=== PATIENT | female | born 1980 | race Caucasian/White ===

== ENCOUNTER 2020-10-15 14:21 | Emergency (ER) | payer OTHER, SELFPAY ==
[2020-10-15 14:46] VITALS: BP 125/86; PULSE 76; RESP 18; TEMP 36.2; O2SAT 100; BMI 24.9
--- NOTE | 2020-10-15 16:16 | ED_ITS ---
HPI - Female Genitourinary General: Chief complaint: Urogenital-Female Stated complaint: abscess Time Seen by Provider: 10/15/20 14:58 Source: patient, RN notes reviewed and old records reviewed Mode of arrival: ambulatory Limitations: no limitations History of Present Illness: HPI Narrative: Patient is a 40-year-old female patient who has a history of recurrent Bartholin's gland abscess who presents to the emergency department with what she thinks is a Bartholin's abscess. Symptoms started 4 days ago and about 2 days ago it started draining. The swelling is located on her left labia. Yesterday the drainage stopped and got much bigger and now the pain is unbearable. She went to her primary care provider's office today who referred her to the surgeon's office today. The surgeon felt this was what needed to be handled by gynecology so he spoke with the cardiology consultant on-call, Dr. Rebolledo, and she was asked to come to the emergency department where he will see her. She denies any fever but has nausea that she thinks is secondary to the pain. MD elicited complaint: genital swelling Onset (ago): day(s) (4) Location of symptoms: external genitalia Severity: severe Quality of pain: sharp Consistency: constant Vaginal discharge: none Vaginal bleeding: none Relieving factors: none Associated symptoms: Reports nausea; Deny abdominal pain, short of breath, fevers/chills, headache(s), rash, seizures, syncope, vaginal bleeding, vaginal discharge or weakness Treatment prior to arrival: sitz bath Review of Systems General: Reports: 10 or more systems reviewed and unremarkable except in HPI and below Card: Denies: syncope GI: Reports: nausea; Denies: abdominal pain : Denies: vaginal discharge Neuro: Denies: headache(s) [facility] ED PFSH: Social History Smoking and tobacco status: never smoked Physical Exam Const: COMMON NORMALS: no acute distress, average body habitus, patient oriented x3, no limitations, healthy appearing, alert and well nourished HENMT: COMMON NORMALS: normocephalic, atraumatic and moist oral mucous membranes HEAD & SCALP: normocephalic and atraumatic Neck/C-Spine: COMMON NORMALS: no meningeal signs and no JVD Resp: COMMON NORMALS: normal respiratory effort, No retractions, No use of accessory muscles, clear to auscultation bilaterally and percussion normal AUSCULTATION: clear to auscultation bilaterally PERCUSSION: percussion normal Cardio: COMMON NORMALS: no JVD, regular rate, regular rhythm, S1 normal heart sound present, S2 normal heart sound present, No gallops present (Cardio), No clicks present (Cardio), No murmurs present (Cardio), No rub (Cardio) and Peripheral pulses 2+ throughout RATE: regular rate RHYTHM: regular rhythm HEART SOUNDS: S1 normal heart sound present and S2 normal heart sound present PERIPHERAL PULSES: Peripheral pulses 2+ throughout GI: COMMON NORMALS: Normal to inspection, nondistended, normoactive bowel sounds present, Soft to palpation, non-tender, No hepatosplenomegaly present, no masses and no bruits PALPATION: Yes Soft to palpation and Yes No hepatosplenomegaly present : EXTERNAL FEMALE EXAM: Yes Bartholin cyst Bartholin's cyst laterality: left (large, about 8-10 cm, fluctuant, tender, erythema, pus drainage) SPECULUM EXAM - VAGINA: No vaginal bleeding OB/EXTERNAL & SPECULUM: No vaginal bleeding Extremity: COMMON NORMALS: normal to inspection, full ROM, capillary refill normal, no calf tenderness and no pedal edema Neuro: COMMON NORMALS: patient oriented x3 SENSORIUM/ORIENTATION: Yes alert MENINGEAL SIGNS: Yes no meningeal signs Procedures Abscess I/D Site: bartholin's gland Side (if applicable): left Local Anesthetic: lidocaine 1% Technique: incised with #11 blade (procedure done by Dr. Rebolledo) Packing used?: Word catheter Complications: other (none) Course Consultations: Consultation #1: Discussed the patient with Dr. Rebolledo, cardiology consultant who came to the emergency department and evaluated this patient and performed an incision and drainage her left and improvise Word catheter as a drain. Vital Signs: Vital signs: Vital Signs Temperature 97.1 F L 10/15/20 14:46 Pulse Rate 81 10/15/20 20:10 Respiratory Rate 16 10/15/20 20:10 Blood Pressure 111/68 10/15/20 20:10 Pulse Oximetry 99 10/15/20 20:10 MDM - Female MDM Narrative: Medical decision making narrative: This 40-year-old female patient presents to the emergency department with a Bartholin's abscess on the left labia. This is her fourth episode of the abscess in the last few years. In the emergency department an incision and drainage was done by the cardiology consultant on-call, Dr. Rebolledo. He left seen a size 8 [place] Bae catheter. While in the emergency department she was given a dose of intravenous vancomycin. She is discharged home with some pain medication. She will follow- up with Dr. Rebolledo in the clinic in 1 week. She can have an elective removal of the Bartholin's gland since she is having recurrent episodes of the abscess. Medical Records: Attestation: I reviewed the patient's medical records. Discharge Plan Discharge Patient Disposition: Home Clinical Impression: Abscess of Bartholin's gland Condition: Stable Prescriptions: New hydrocodone-acetaminophen 5-325 mg tablet 1 tab PO Q8H PRN (Reason: pain) Qty: 12 RF: 0 No Action No Known Home Medications RF: 0 Discharge Orders: Discharge ED (Routine); Ordered 10/15/20 Ordered By: Blayne Bo Referrals: Eric Rebolledo MD [Physician] - 1 week (in one week) FRIEDA Goldberg FNP [Primary Care Provider] - 1-3 days Discharge Diet: Usual diet Discharge Activity: Increase activity as tolerated Patient Instructions: Bartholin's Abscess, Incision and Drainage (ED), Opioid Safety Activity Restrictions/Additional Instructions: Return for any new or worsening symptoms. Follow-up with your primary care provider within 3 days. Call the office of Dr. Rebolledo as he wants to see you in the office in 1 week. Take the pain medicine as needed for severe pain. Take ibuprofen as needed for mild to moderate pain. Coding Level of Care Code ED [employer] for [place] F[employer] Exam Comprehensive
[2020-10-15] MEDS: vancomycin 1,000 MG in sodium chloride 0.9% 250 ML 250 MG IV (17:42)
[2020-10-15] MEDS: lidocaine 2% INJ 20 mL INJECTION (17:42)
[2020-10-15 17:45] VITALS: BP 112/66; PULSE 78; RESP 18; O2SAT 99
[2020-10-15 17:55] VITALS: RESP 18
[2020-10-15] MEDS: ondansetron 2 mg/ML SDV 2 mL 4 MG IVP (17:55)
[2020-10-15] MEDS: morphine 4 mg/mL SDV 1 mL IVP (17:55)
[2020-10-15 18:00] VITALS: BP 102/64; PULSE 87; RESP 18; O2SAT 100
[2020-10-15] MEDS: diphenhydrAMINE 50 mg/mL SDV 1mL IVP (18:56)
[2020-10-15 19:04] VITALS: BP 111/68; PULSE 86; RESP 20; O2SAT 99
[2020-10-15 20:10] VITALS: BP 111/68; PULSE 81; RESP 16; O2SAT 99
== END 2020-10-15 20:12 | disposition home or self-care (01) ==
PROVIDERS: Emergency Provider Family Medicine; PCP Nurse Practitioner Family
DX: N75.1 Abscess of Bartholin's gland (principal)
CPT/HCPCS: 56420; 87070; 87075; 87205; 96365; 96375; 99284; J1200; J2270; J2405; J3370; J7050

== ENCOUNTER → 2024-10-08 15:47 | Outpatient (BNVA) | payer SELFPAY | PROVIDERS: PCP Nurse Practitioner Family; Visit Provider Nurse Practitioner Family | DX: M79.672 Pain in left foot (principal) | CPT/HCPCS: 73630 ==